=== PATIENT | female | born 1990 | race Caucasian/White ===

== ENCOUNTER 2021-08-05 01:15 | Emergency (ER) | payer OTHER ==
[~2021-08-05] VITALS: Ht 167.6 cm; Wt 67.1 kg
[2021-08-05] MEDS ORDERED: NORFLEX100MG PO (05:18)
[2021-08-05] MEDS ORDERED: KETO10TA2 PO (05:18)
== END 2021-08-05 05:35 | disposition home or self-care (01) ==
LOC: ER 01:15
DX: R55 Syncope and collapse (principal); S06.2X1A Diffuse traumatic brain injury with loss of consciousness of 30 minutes or less, initial encounter; S20.229A Contusion of unspecified back wall of thorax, initial encounter; W18.39XA Other fall on same level, initial encounter; Y93.89 Activity, other specified; Y92.018 Other place in single-family (private) house as the place of occurrence of the external cause; Y99.8 Other external cause status; Z03.818 Encounter for observation for suspected exposure to other biological agents ruled out